=== PATIENT | female | born 1975 ===

== ENCOUNTER 2017-11-21 01:41 | Emergency (ER) | payer OTHER, SELFPAY ==
--- NOTE | 2017-11-21 03:43 | ED PDOC ---
HPI: CCC, URI, Sore Throat Time Seen by Provider: 11/21/17 02:58 Chief Complaint (Nursing): ENT Problem Chief Complaint (Provider): ENT Problem History Per: Patient History/Exam Limitations: no limitations Additional Complaint(s): Marya Nolan is a 41 y/o female with no significant past medical history presenting to the ED complaining of throat pain, onset x1 week ago with an associated dry cough. Patient reports that the pain was severe enough to keep her up at night but shes denies taking any medication. PMD: Carie Santos Past Medical History Reviewed: Historical Data, Nursing Documentation, Vital Signs Vital Signs: Last Vital Signs Temp 97.9 F 11/21/17 01:59 Pulse 62 11/21/17 01:59 Resp 14 11/21/17 01:59 BP 114/74 11/21/17 01:59 Pulse Ox 94 L 11/21/17 04:15 - Medical History PMH: No Chronic Diseases - Surgical History Surgical History: No Surg Hx - Family History Family History: States: Unknown Family Hx - Home Medications Home Medications: Ambulatory Orders Medication Instructions Recorded Multivitamin and [id number] 1 tab PO DAILY 12/29/13 [] Cyclobenzaprine [Cyclobenzaprine 10 mg PO BID #14 tab 02/05/16 HCl] Ibuprofen [Motrin] 400 mg PO Q6 #30 tab 02/05/16 Ibuprofen [Motrin Tab] 600 mg PO Q6 #30 tab 11/21/17 Prednisone [Deltasone] 20 mg PO DAILY 2 Days #4 tablet 11/21/17 - Allergies Allergies/Adverse Reactions: Allergies Allergy/AdvReac Type Severity Reaction Status Date / Time No Known Allergies Allergy Verified 11/21/17 01:59 Review of Systems ROS Statement: Except As Marked, All Systems Reviewed And Found Negative Constitutional: Negative for: Fever ENT: Positive for: Throat Pain Respiratory: Positive for: Cough (dry) Physical Exam - Reviewed Nursing Documentation Reviewed: Yes Vital Signs Reviewed: Yes - Physical Exam Appears: Positive for: Well (generally well appearing) Head Exam: Positive for: ATRAUMATIC, NORMOCEPHALIC ENT: Positive for: Tonsillar Swelling (mild). Negative for: Pharyngeal Erythema , Tonsillar Exudate, Other (pus) Cardiovascular/Chest: Positive for: Regular Rate, Rhythm. Negative for: Murmur Respiratory: Positive for: Normal Breath Sounds. Negative for: Respiratory Distress Lymphatic: Negative for: Adenopathy Neurologic/Psych: Positive for: Alert, Oriented. Negative for: Motor/Sensory Deficits - ECG O2 Sat by Pulse Oximetry: 94 (RA) Pulse Ox Interpretation: Abnormal Medical Decision Making Medical Decision Making: Time: 03:04 A/P: 41 y/o female presenting with pharyngitis. Low suspicion for bacterial infection. Patient is well appearing, most likely viral. Will treat symptomatically and check rapid strep. --Motrin 600 mg PO --Rapid strep 0400 --Rapid strep negative --Will advise NSAIDs and short course of steroid --Advise followup with PMD ----- Scribe Attestation: Documented by Lane Ashraf, acting as a scribe for José Antonio Connell MD. Provider Scribe Attestation: All medical record entries made by the Scribe were at my direction and personally dictated by me. I have reviewed the chart and agree that the record accurately reflects my personal performance of the history, physical exam, medical decision making, and the department course for this patient. I have also personally directed, reviewed, and agree with the discharge instructions and disposition. Disposition - Clinical Impression Clinical Impression: Pharyngitis - Disposition Referrals: Carie Santos MD [Primary Care Provider] - Disposition: Routine/Home Disposition Time: 04:00 Condition: STABLE Prescriptions: Ibuprofen [Motrin Tab] 600 mg PO Q6 #30 tab Prednisone [Deltasone] 20 mg PO DAILY 2 Days #4 tablet Instructions: Viral Pharyngitis Forms: [employer] (Bermudian) Print Language: [place] ISLANDER
[2017-11-21 04:26] VITALS: BP 122/82; PULSE 68; RESP 16; TEMP 98.2; O2SAT 98
== END 2017-11-21 04:25 | disposition home or self-care (01) ==
LOC: H.ER 01:41
DX: J02.9 Acute pharyngitis, unspecified (principal)

== ENCOUNTER 2018-08-04 16:14 | Emergency (ER) | payer SELFPAY ==
--- NOTE | 2018-08-04 17:13 | ED PDOC ---
HPI: Abdomen Time Seen by Provider: 08/04/18 17:11 Chief Complaint (Nursing): Abdominal Pain Chief Complaint (Provider): abdominal pain History Per: Patient History/Exam Limitations: no limitations Onset/Duration Of Symptoms: Intermittent Episodes Outside of [place] travel?: No Current Symptoms Are (Timing): Still Present Severity: Mild Pain Scale Rating Of: 3 Location Of Pain/Discomfort: Epigastric Quality Of Discomfort: Burning Associated Symptoms: Nausea, Vomiting Exacerbating Factors: None Alleviating Factors: None Last Bowel Movement: Today Additional Complaint(s): 42 y/o female presents to the ED for evaluation of epigastric abdominal pain, onset one week. Patient denies taking any medications for symptom relief. Abnormal Vaginal Bleeding: No Last Menstral Period: last week Past Medical History Vital Signs: Last Vital Signs Temp 98.1 F 08/04/18 16:29 Pulse 70 08/04/18 16:29 Resp 16 08/04/18 16:29 BP 102/56 L 08/04/18 16:29 Pulse Ox 98 08/04/18 16:29 - Medical History PMH: No Chronic Diseases Denies: Chronic Kidney Disease - Surgical History Surgical History: - Family History Family History: States: Unknown Family Hx - Living Arrangements Living Arrangements: With Family - Social History Current smoker - smoking cessation education provided: No Ex-Smoker (has not smoked in the last 12 months): No Alcohol: None Drugs: Denies - Immunization History Hx Tetanus Toxoid Vaccination: No Hx Influenza Vaccination: No Hx Pneumococcal Vaccination: No - Home Medications Home Medications: Ambulatory Orders Medication Instructions Recorded Multivitamin and [id number] 1 tab PO DAILY 12/29/13 [] Cyclobenzaprine [Cyclobenzaprine 10 mg PO BID #14 tab 02/05/16 HCl] Ibuprofen [Motrin] 400 mg PO Q6 #30 tab 02/05/16 Ibuprofen [Motrin Tab] 600 mg PO Q6 #30 tab 11/21/17 Prednisone [Deltasone] 20 mg PO DAILY 2 Days #4 tablet 11/21/17 - Allergies Allergies/Adverse Reactions: Allergies Allergy/AdvReac Type Severity Reaction Status Date / Time No Known Allergies Allergy Verified 11/21/17 01:59 Review of Systems ROS Statement: Except As Marked, All Systems Reviewed And Found Negative Constitutional: Negative for: Fever Cardiovascular: Negative for: Chest Pain Respiratory: Negative for: Cough, Shortness of Breath Gastrointestinal: Positive for: Nausea, Abdominal Pain. Negative for: Melena Genitourinary Female: Negative for: Dysuria Skin: Negative for: Lesions Neurological: Negative for: Weakness Physical Exam - Reviewed Nursing Documentation Reviewed: Yes Vital Signs Reviewed: Yes - Physical Exam Appears: Positive for: Well, No Acute Distress Head Exam: Positive for: ATRAUMATIC, NORMAL INSPECTION, NORMOCEPHALIC Skin: Positive for: Normal Color. Negative for: Pallor, Rash, Jaundice Eye Exam: Positive for: Normal appearance, EOMI, PERRL. Negative for: Conjunctival injection, Scleral icterus ENT: Positive for: Normal ENT Inspection Neck: Positive for: Normal Cardiovascular/Chest: Positive for: Regular Rate, Rhythm, Chest Non Tender Respiratory: Positive for: Normal Breath Sounds Gastrointestinal/Abdominal: Positive for: Normal Exam, Bowel Sounds, Soft, Tenderness ((+) epigastric tenderness, soft, nd, no hsm, (+)bs times 4, no cva.) . Negative for: Organomegaly, Mass, Rebound, Hernia, Asicites Extremity: Positive for: Normal ROM (upper/lower) Neurological/Psych: Positive for: Awake, Alert, Oriented (x3). Negative for: Motor/Sensory Deficits - Laboratory Results Result Diagrams: 08/04/18 18:02 08/04/18 18:02 - ECG O2 Sat by Pulse Oximetry: 98 (RA) Pulse Ox Interpretation: Normal Medical Decision Making Medical Decision Making: Time: 1708 Impression: Abdominal Pain Plan: -- Amylase -- CMP -- Lipase -- ED Urine -- CBC -- Pepcid 20 mg IVP -- Zofran Inj 4 mg IVP -- Urinalysis _abdominal pain, pending US, case endorsed to RANDY Larose. Scribe Attestation: Documented by Xin Oropeza, acting as a scribe forSveta Gajria, PA-C. Provider Scribe Attestation: All medical record entries made by the Scribe were at my direction and personally dictated by me. I have reviewed the chart and agree that the record accurately reflects my personal performance of the history, physical exam, medical decision making, and the department course for this patient. I have also personally directed, reviewed, and agree with the discharge instructions and disposition. Disposition - Clinical Impression Clinical Impression: Abdominal pain - Patient ED Disposition Is Patient to be Admitted: Transfer of Care (abdominal pain, pending US, case endorsed to RANDY Larose.) - Disposition Disposition: Transfer of Care (abdominal pain, pending US, case endorsed to RANDY Larose.) Disposition Time: 20:04 Condition: GOOD Forms: [facility] (Sudanese)
[2018-08-04 18:08] LABS: HEMOGLOBIN 12.6 g/dL (12.0-16.0); MEAN CELL VOLUME 93.3 fl (81.0-99.0); MEAN CORPUSCULAR HEMOGLOBIN 32.4 pg (27.0-31.0); MEAN CORPUSCULAR HGB CONC 34.8 g/dL (33.0-37.0); RBC 3.89 Mil/uL (3.80-5.20); WHITE BLOOD COUNT 5.2 K/uL (4.8-10.8)
[2018-08-04 18:23] LABS: ALB/GLOB RATIO 1.4 (1.0-2.1); ALBUMIN 4.3 g/dL (3.5-5.0); ALT/SGPT 40 U/L (9-52); AMYLASE 72 U/L (30-110); AST/SGOT 35 U/L (14-36); BLOOD UREA NITROGEN 14 mg/dl (7-17); CALCIUM 9.6 mg/dL (8.4-10.2); GFR NON-AFRICAN AMERICAN > 60; LIPASE 81 U/L (23-300)
[2018-08-04 19:18] LABS: SQUAMOUS EPITHIAL 1 /hpf (0-5); URINE BILIRUBIN NEGATIVE (NEGATIVE); URINE BLOOD NEGATIVE (NEGATIVE); URINE CLARITY SLIGHTY-CLOUDY (Clear); URINE COLOR YELLOW (YELLOW); URINE GLUCOSE (UA) NEG (NEGATIVE); URINE LEUKOCYTE ESTERASE TRACE Leu/uL (Negative); URINE PROTEIN NEGATIVE (NEGATIVE); URINE UROBILINOGEN 0.2-1.0 mg/dL (0.2-1.0)
--- NOTE | 2018-08-04 20:36 | ED PDOC ---
- Laboratory Results Result Diagrams: 08/04/18 18:02 08/04/18 18:02 Lab Results: Total Bilirubin 0.4 mg/dl (0.2-1.3) 08/04/18 18:02 AST 35 U/L (14-36) 08/04/18 18:02 ALT 40 U/L (9-52) 08/04/18 18:02 Alkaline Phosphatase 81 U/L (38-126) 08/04/18 18:02 Total Protein 7.5 G/DL (6.3-8.2) 08/04/18 18:02 Albumin 4.3 g/dL (3.5-5.0) 08/04/18 18:02 Globulin 3.2 gm/dL (2.2-3.9) 08/04/18 18:02 Albumin/Globulin Ratio 1.4 (1.0-2.1) 08/04/18 18:02 Amylase 72 U/L (30-110) 08/04/18 18:02 Lipase 81 U/L (23-300) 08/04/18 18:02 Urine Color Yellow (YELLOW) 08/04/18 19:08 Urine Clarity Slighty-cloudy (Clear) 08/04/18 19:08 Urine pH 6.0 (5.0-8.0) 08/04/18 19:08 Ur Specific [place] 1.019 (1.003-1.030) 08/04/18 19:08 Urine Protein Negative mg/dL (NEGATIVE) 08/04/18 19:08 Urine Glucose (UA) Neg mg/dL (NEGATIVE) 08/04/18 19:08 Urine Ketones Negative mg/dL (NEGATIVE) 08/04/18 19:08 Urine Blood Negative (NEGATIVE) 08/04/18 19:08 Urine Nitrate Negative (NEGATIVE) 08/04/18 19:08 Urine Bilirubin Negative (NEGATIVE) 08/04/18 19:08 Urine Urobilinogen 0.2-1.0 mg/dL (0.2-1.0) 08/04/18 19:08 Ur Leukocyte Esterase Trace Jose/uL (Negative) 08/04/18 19:08 Urine RBC (Auto) < 1 /hpf (0-3) 08/04/18 19:08 Urine Microscopic WBC 2 /hpf (0-5) 08/04/18 19:08 Ur Squamous Epith Cells 1 /hpf (0-5) 08/04/18 19:08 - ECG O2 Sat by Pulse Oximetry: 98 (RA) Medical Decision Making Medical Decision Makin patient endorsed to me by Becky POTTER, pending US results and dispo 2029 US tech will not be here for 30+ mins Pt seen by my, sleeping in stretcher, easily arousable, pt reports no current pain, abdomen is soft and non tender, informed pt of wait for US 2119 re eval, pt's daughter bedside provides lao translation, informed pending US tech daughter reports pt has been seen by clinic for this pain, given unknown medication without improvement, pain comes and goes with nausea, which are currently improved 2344 EXAM: US Abdomen complete CLINICAL HISTORY: Abd pain TECHNIQUE: Real-time ultrasound of the abdomen (complete) with image documentation. COMPARISON: None provided. FINDINGS: LIVER: Liver is normal in size but demonstrates increased echogenicity as can be seen in fatty infiltration or hepatocellular disease. No focal liver lesions identified. GALLBLADDER: The gallbladder is slightly contracted but otherwise unremarkable. No pericholecystic fluid. Sonographic Cam sign is negative. COMMON BILE DUCT: The common bile duct is normal in caliber measuring 0.3 cm. PANCREAS: The pancreas has a normal sonographic appearance. KIDNEYS: The right kidney is normal in size measuring 10.1 cm and demonstrates no hydronephrosis, mass or calculi. SPLEEN: Unremarkable. AORTA: The visualized abdominal aorta and IVC appear unremarkable. IVC: Unremarkable as visualized. MISCELLANEOUS: No other significant findings identified. IMPRESSION: 1. Liver is normal in size but demonstrates increased echogenicity as can be seen in fatty infiltration or hepatocellular disease. 2. Additional and incidental findings as described above. 2346 on re eval pt continues to be pain free, abdomen is soft and non tender, pt does report pain comes and goes, informed pt (daughter translating) of US results, labs and LFTs wnl, pt is stable for dc Discussed results, diagnosis, treatment, return precautions and f/u with pt who is understanding, in agreement and stable for dc Disposition Counseled Patient/Family Regarding: Studies Performed, Diagnosis, Need For Followup, Rx Given - Clinical Impression Clinical Impression: Abdominal pain, Reflux gastritis, Fatty liver - POA Present On Arrival: None - Disposition Referrals: [facility] [Outside] Andrea Hernadez MD [Staff Provider] - Disposition: Routine/Home Disposition Time: 23:46 Condition: IMPROVED Additional Instructions: The emergency medical care you received today was directed at your acute symptoms. Please follow up with your primary doctor or GI doctor as listed. If you were prescribed any medication, please fill it and take as directed. It may take several days for your symptoms to resolve. Return to the Emergency Department if your symptoms worsen, do not improve, or if you have any other problems. Please contact your doctor in 2 days for re-evaluation and follow up / or call one of the physicians/clinics you have been referred to that are listed on the Patient Visit Information form that is included in your discharge packet. Bring any paperwork you were given at discharge with you along with any medications you are taking to your follow up visit. Our treatment cannot replace ongoing medical care by a primary care provider (PCP) outside of the emergency department. Prescriptions: Famotidine [Pepcid] 20 mg PO DAILY #20 tab Ondansetron ODT [Zofran ODT] 4 mg PO TID PRN #12 odt PRN Reason: Nausea/Vomiting Instructions: Gastritis, Acid Reflux (Gastroesophageal Reflux Disease), Adult (DC), Acute Abdomen (Belly Pain), Adult (DC), Nonalcoholic Fatty Liver Disease (DC) Forms: [employer] (Luxembourgish) Print Language: POLISH
[2018-08-04 23:31] VITALS: BP 105/58; PULSE 66; RESP 66; TEMP 97.7
[2018-08-04 23:47] VITALS: O2SAT 98
--- NOTE | 2018-08-05 10:59 | US ---
Date of service: 08/04/2018 HISTORY: abdominal pain COMPARISON: None. TECHNIQUE: Sonographic evaluation of the right upper quadrant of the abdomen. FINDINGS: LIVER: Measures 13.6 cm in length. Increased echogenicity of the liver parenchyma. No mass. No intrahepatic bile duct dilatation. GALLBLADDER: Contracted. No gallstones. COMMON BILE DUCT: Measures 3 mm. No stones. No dilatation. PANCREAS: Unremarkable as visualized. No mass. No ductal dilatation. RIGHT KIDNEY: Measures 10.1 x 3.9 x 3.7 cm in length. Normal echogenicity. No calculus, mass, or hydronephrosis. AORTA: No aneurysmal dilatation. IVC: Unremarkable. OTHER FINDINGS: None . IMPRESSION: Hepatic steatosis.
== END 2018-08-05 00:08 | disposition home or self-care (01) ==
LOC: H.ER 16:14
DX: R10.9 Unspecified abdominal pain (principal); Z87.891 Personal history of nicotine dependence; K76.0 Fatty (change of) liver, not elsewhere classified
CPT/HCPCS: 76705; 80053; 81003; 81025; 82150; 83690; 85027; 96374; 96375; 99284; J2405